=== PATIENT | female | born 1955 | race Caucasian/White ===

== ENCOUNTER 2020-08-05 08:28 | Day surgery (SDC) | payer OTHER ==
[2020-07-31 12:14] VITALS: BMI 41.0
[2020-08-05] MEDS ORDERED: AFRIN NASAL MIST 15 ML BOT ONE (08:49)
[2020-08-05] MEDS ORDERED: Lidocaine 1% w/Epinephrine 1:100K 20 ML VIAL ONE (10:10)
[2020-08-05] MEDS ORDERED: Midazolam HCl 2 mg/2 ml Vial ONE ×2 (10:11→10:16)
[2020-08-05] MEDS ORDERED: Lidocaine 1% PF 5 ML VIAL ONE (10:15)
[2020-08-05] MEDS ORDERED: PROPOFOL 200 MG/20 ML VIAL ONE (10:15)
[2020-08-05] MEDS ORDERED: Ondansetron PF 4 MG/2 ML Vial ONE (10:15)
[2020-08-05] MEDS ORDERED: Glycopyrrolate 0.2 MG/ML 5 ML SYRINGE ONE (10:15)
[2020-08-05] MEDS ORDERED: Dexamethasone 20 MG/5 ML VIAL ONE (10:15)
[2020-08-05] MEDS ORDERED: Rocuronium Bromide 10 MG/ML (10ML VIAL) ONE (10:15)
[2020-08-05] MEDS ORDERED: Fentanyl 100 MCG/2 ML VIAL ONE ×3 (10:16→11:55)
[2020-08-05] MEDS ORDERED: HYDROcodone/Acetaminophen 5/325 mg Tablet ONE (12:48)
[2020-08-05] MEDS ORDERED: Ondansetron ODT 4 MG TAB ONE (14:27)
--- NOTE | 2020-08-06 13:53 | OP ---
DATE OF PROCEDURE: 08/05/2020 PREOPERATIVE DIAGNOSES: 1. Chronic rhinosinusitis. 2. Bilateral inferior turbinate hypertrophy. 3. Nasal obstruction. 4. Right middle turbinate avani bullosa. POSTOPERATIVE DIAGNOSES: 1. Chronic rhinosinusitis. 2. Bilateral inferior turbinate hypertrophy. 3. Nasal obstruction. 4. Right middle turbinate avani bullosa. PROCEDURES PERFORMED: 1. Bilateral endoscopic sinus surgery, total ethmoidectomies and sphenoidotomies including removal of tissue. 2. Bilateral endoscopic sinus surgery, maxillary antrostomies. 3. Bilateral endoscopic sinus surgery, frontal sinusotomies. 4. Bilateral inferior turbinate submucosal resection. 5. Endoscopic resection of right middle turbinate avani bullosa. 6. [employer] cranial base image-guided surgery. ESTIMATED BLOOD LOSS: 20 mL. COMPLICATIONS: None. ANESTHESIA: GETA. DESCRIPTION OF PROCEDURE: The patient was taken to the operating room and placed supine on the table. General endotracheal anesthesia was obtained by the Anesthesia Staff. Tube was secured in the left lower lip. The patient was placed in a beach-chair position. She was prepped and draped for standard surgical procedure. Following this, Afrin pledgets were removed from the nasal cavity. 1% lidocaine with 1:100,000 epinephrine was injected in the inferior turbinates, middle turbinates, and lateral nasal wall bilaterally. Following this, a 0-degree endoscope was advanced into the middle meatus bilaterally. On the right side, a large middle turbinate avani bullosa deformity obstructed right middle meatus. A vertical incision was made in the anterior head of the right middle turbinate with a sickle knife. The lateral wall of the avani bullosa was then resected using the 0-degree microdebrider and the straight [place] forceps. Following this, the uncinate process was visualized bilaterally and a ball-ended probe was used to remove the uncinate process and anteriorly fracture it bilaterally. The uncinate was then removed using the microdebrider and the up-biting Blakesley forceps bilaterally. Following this, the natural maxillary sinus ostia was identified with a ball-ended probe bilaterally and was widened using the 40-degree microdebrider blade and the straight [place]akes[place] forceps bilaterally. Following this, the ethmoidal bulla was identified and was punctured on its medial and inferior aspect with the 0-degree microdebrider and was then removed using the microdebrider and up-biting Blakesley forceps bilaterally. Following this, the grand lamella was identified and was punctured into the posterior ethmoidal cells using 0-degree microdebrider under image-guided navigational tools bilaterally. Polypoid mucosa and purulence were removed from the ethmoidal cells. Following this, the anterior wall of the sphenoid sinus was identified bilaterally under image-guided surveillance, and a sphenoidotomy was created bilaterally using the 0-degree microdebrider. The sphenoid sinusotomy was then widened in a medial and inferior direction using the 0-degree microdebrider bilaterally. Polypoid mucosa and inflammatory mucosa and bone were removed from the anterior wall of the sphenoid sinus. Following this, the 45-degree endoscope along with the 40-degree microdebrider blade under navigational guidance was used to further open the anterior ethmoidal cells and identify the frontal sinus ostia bilaterally. The frontal sinus ostia was then widened using the 40-degree microdebrider blade bilaterally. Following this, the inferior turbinates were punctured on the anterior and inferior aspect, and submucosal resection was performed on the anterior and inferior portions of the inferior turbinates bilaterally. Inferior turbinates were then laterally fractured using a [place] elevator. Following this, the nasal cavity was irrigated. Nasopore packing was placed within the middle meatus. start of the procedure, the [email or web address] image-guided system was setup, calibrated, and was noted to be within 1 mm of accuracy. The patient tolerated the procedure well. Job ID: [id number]
== END 2020-08-05 14:30 | disposition home or self-care (01) ==
LOC: SDC 08:28
PROVIDERS: ATTEND Otolaryngology Plastic Surgery within the Head & Neck
PROC: 09CX8ZZ Extirpation of Matter from Left Sphenoid Sinus, Via Natural or Artificial Opening Endoscopic (ICD-10-PCS; principal; 2020-08-05)
PROC: 8E09XBZ Computer Assisted Procedure of Head and Neck Region (ICD-10-PCS; principal; 2020-08-05)
PROC: 09BV8ZZ Excision of Left Ethmoid Sinus, Via Natural or Artificial Opening Endoscopic (ICD-10-PCS; principal; 2020-08-05)
PROC: 099R8ZZ Drainage of Left Maxillary Sinus, Via Natural or Artificial Opening Endoscopic (ICD-10-PCS; principal; 2020-08-05)
PROC: 09CW8ZZ Extirpation of Matter from Right Sphenoid Sinus, Via Natural or Artificial Opening Endoscopic (ICD-10-PCS; principal; 2020-08-05)
PROC: 09BU8ZZ Excision of Right Ethmoid Sinus, Via Natural or Artificial Opening Endoscopic (ICD-10-PCS; principal; 2020-08-05)
PROC: 09BL8ZZ Excision of Nasal Turbinate, Via Natural or Artificial Opening Endoscopic (ICD-10-PCS; principal; 2020-08-05)
PROC: 099Q8ZZ Drainage of Right Maxillary Sinus, Via Natural or Artificial Opening Endoscopic (ICD-10-PCS; principal; 2020-08-05)
DX: J32.4 Chronic pansinusitis (principal); J34.3 Hypertrophy of nasal turbinates; J34.89 Other specified disorders of nose and nasal sinuses; J34.9 Unspecified disorder of nose and nasal sinuses; G47.33 Obstructive sleep apnea (adult) (pediatric); K21.9 Gastro-esophageal reflux disease without esophagitis; J45.909 Unspecified asthma, uncomplicated; Z79.82 Long term (current) use of aspirin; Z79.899 Other long term (current) drug therapy; Z88.2 Allergy status to sulfonamides; Z88.5 Allergy status to narcotic agent
CPT/HCPCS: J1100; J2250; J2405; J2704; J3010; Q0162